=== PATIENT | male | born 1990 | race Two or more races ===

== ENCOUNTER 2020-06-29 09:01 | Outpatient (CLI) | payer OTHER | END 2020-06-29 23:59 | disposition home or self-care (01) | LOC: LAB 09:01 | PROVIDERS: ATTEND Specialist | DX: Z01.812 Encounter for preprocedural laboratory examination (principal); Z20.828 Contact with and (suspected) exposure to other viral communicable diseases | CPT/HCPCS: 87426; C9803; U0003 ==

== ENCOUNTER 2020-07-04 07:10 | Day surgery (SDC) | payer OTHER ==
--- NOTE | 2020-07-04 07:45 | NUR ---
RN NOTES PATIENT ARRIVED AT UNIT, AMBULATORY, ROOM 320-2
[2020-07-04] MEDS ORDERED: BUPIVACAINE MPF W/EPI 0.25% 30 ML VIAL ONE (09:13)
--- NOTE | 2020-07-04 09:13 | NUR ---
RN NOTES PATIENT PICKED UP FOR SURGERY VIA GURNEY, ACCOMPANIED BY 1 OR TECH. MRSA SWAB SAMPLE TAKEN.
[2020-07-04] MEDS ORDERED: EPINEPHRINE (1:1000) 1 MG/ML AMPUL ONE ×2 (10:01→10:06)
[2020-07-04] MEDS ORDERED: LIDOCAINE 1% INJ 50 ML MDV IJ ONE (10:13)
[2020-07-04] MEDS ORDERED: methylPREDNISolone ACETATE 40 MG/ML VIAL ONE (10:17)
[2020-07-04] MEDS ORDERED: methylPREDNISolone ACETATE 80 MG/ML VIAL ONE (10:19)
[2020-07-04] MEDS ORDERED: FLUMAZENIL 0.5 MG VIAL ONE (10:51)
[2020-07-04] MEDS ORDERED: HYDROCODONE/APAP 5/325MG TABLET PO PRN ×2 (12:00)
--- NOTE | 2020-07-04 12:00 | NUR ---
RN NOTES PATIENT RETURNED TO UNIT FROM SURGERY ACCOMPANIED BY MJ OR VS TAKEN. Addendum: 07/04/20 at 1327 by WOODROW MCCARTNEY RN ORDERS NOTED FROM DR. ZAMORA
[2020-07-04 12:08] VITALS: BP 130/79
[2020-07-04] MEDS ORDERED: HYDR-3980 PO (14:04)
--- NOTE | 2020-07-04 14:46 | NUR ---
RN NOTES PATIENT ABLE TO AMBULATE AND VOID WITHOUT ANY COMPLAINTS; NOTED W/ STEADY GAIT.
--- NOTE | 2020-07-04 15:22 | NUR ---
MASTER MECHANIC NOTES PATIENT MEDICALLY STABLE FOR DISCHARGE. NOTED TO BE AWAKE AND VERBALLY RESPONSIVE, A/O X4, ABLE TO MAKE NEEDS KNOWN. DISCHARGE INSTRUCTIONS AND EDUCATION PROVIDED TO PATIENT; EXPLAINED POST-OP ORDERS RE: RIGHT SHOULDER ARTHROSCOPY, AND PATIENT VERBALIZED UNDERSTANDING. PATIENT UNDERSTANDS ABOUT FOLLOW-UP WITH DR. ZAMORA AND AFTERCARE OF SURGICAL SITE. BELONGINGS LIST AND DISCHARGE FORM SIGNED BY PATIENT. NAME ARMBAND AND IV LINE REMOVED. NO SKIN ISSUES NOTED. PATIENT WAS ACCOMPANIED BY JARETT CHAVARRIA TO THE LOBBY AND PATIENT WAS PICKED UP BY EUNICE ARTHURFRJOYCE, VIA PRIVATE CAR, FOR DISCHARGE TO HOME. MD AND CHARGE NURSE AWARE OF DISCHARGE.
== END 2020-07-04 16:00 | disposition home or self-care (01) ==
LOC: DS 07:10 → MED 07:11 → UNDOADMIN 07:11 → UNDODISIN 15:20 → DS 16:00
PROVIDERS: ATTEND Specialist
DX: M75.41 Impingement syndrome of right shoulder (principal); Z88.0 Allergy status to penicillin; Z88.1 Allergy status to other antibiotic agents
CPT/HCPCS: 29806; 29823; 29826; 71045; 87081; A4217; A4565; J0171 ×2; J1030; J1040; J1100; J2405; J2704; J3490 ×3